=== PATIENT | female | born 2005 | race Caucasian/White ===

== ENCOUNTER 2023-06-18 15:43 | Emergency (ER) | payer OTHER ==
[2023-06-18 15:55] VITALS: BP 116/77; PULSE 81; RESP 16; TEMP 98; BMI 24.2
[2023-06-18] MEDS ORDERED: ACETAMINOPHEN 500 MG TABLET (FP) PO ONE (17:32)
== END 2023-06-18 17:55 | disposition home or self-care (01) ==
LOC: JER 15:43 → JERFT 15:43 → JER 17:55
DX: M79.89 Other specified soft tissue disorders (principal)
CPT/HCPCS: 93971-TC; 99283-25